=== PATIENT | female | born 1965 | race Caucasian/White ===

== ENCOUNTER 2018-04-12 09:42 | Emergency (ER) | payer BC ==
[~2018-04-12] VITALS: Ht 167.6 cm; Wt 112.7 kg
[2018-04-12 09:49] VITALS: TEMP 98
[2018-04-12 10:12] LABS: ALBUMIN 4.4 gm/dL (3.5-5.0); BASO % 0.4 % (0.0-2.0); BILIRUBIN,TOTAL 0.8 mg/dL (0.0-1.0); CALCIUM 10.4 mg/dL (8.4-10.2); CREATININE, serum 0.79 mg/dL (0.52-1.25); GRAN % 75.8 % (42.2-75.2); HEMATOCRIT 48.6 % (37.0-47.0); LYMPH # 2.1 (1.2-3.4); LYMPH % 19.9 % (20.0-51.0); MEAN CELL VOLUME 86 fl (80.0-100.0); MEAN CORPUSCULAR HEMOGLOBIN 30 pg (27.0-31.0); MEAN CORPUSCULAR HGB CONC 35 g/dl (33.0-37.0); MONO # 0.4 (0.1-0.6); MONO % 3.4 % (1.7-9.3); PLATELET COUNT 456 K/mm3 (130-400); POTASSIUM 3.9 mmol/L (3.4-5.0); RED BLOOD COUNT 5.66 M/mm3 (4.10-5.30); REDCELL DISTRIBUTION WIDTH-CV 12.7 % (11.5-14.5); TOTAL PROTEIN 9.2 gm/dL (6.4-8.2)
[2018-04-12 10:28] LABS: TROPONIN-I 1.47 ng/mL (0.000-0.034)
[2018-04-12 11:08] VITALS: BP 196/119; PULSE 94
[2018-04-12 11:31] LABS: PARTIAL THROMBOPLASTIN TIME 34.6 SECONDS (26.0-37.0)
== END 2018-04-12 11:08 | disposition short-term general hospital (02) ==
LOC: COL.ER 09:42
PROVIDERS: Family Medicine
DX: I21.9 Acute myocardial infarction, unspecified (principal); E78.5 Hyperlipidemia, unspecified
CPT/HCPCS: J1644; J3101